=== PATIENT | female | born 1955 | race Caucasian/White ===

== ENCOUNTER → 2019-11-24 16:59 | Outpatient (CLI) | payer MEDICARE, SELFPAY ==
--- NOTE | 2019-11-24 17:28 | DI.MG.S_ITS ---
Patient Name: ADRIANA PRADO date: 1955 Sex: F Attending Physician: Pio Indications: Date: 11/24/2019 17:25 At the request of: EUSEBIO SCOTT Procedure: MM screening mammo BI BILATERAL DIGITAL SCREENING MAMMOGRAM 3D/2D WITH CAD: 11/24/2019 CLINICAL: Routine screening. Baseline exam. No prior exams were available for comparison. The tissue of both breasts is heterogeneously dense. This may lower the sensitivity of mammography. Current study was also evaluated with a Computer Aided Detection (CAD) system. No significant masses, calcifications, or other findings are seen in either breast. IMPRESSION: NEGATIVE There is no mammographic evidence of malignancy. A 1 year screening mammogram is recommended. This exam was interpreted at Station ID: [id number]. NOTE: For mammograms, a report in lay terms will be sent to the patient. Approximately 15% of breast malignancies will not be visualized mammographically. In the management of a palpable breast mass, a negative mammogram must not discourage biopsy of a clinically suspicious lesion. Electronically Signed By: Tremayne [email or web address]:11/24/2019 18:15:39 letter sent: Normal Exam ACR BI-RADS Category 1: Negative 3341F
== END ==
PROVIDERS: PCP Student in an Organized Health Care Education/Training Program; Referring Provider Student in an Organized Health Care Education/Training Program; Visit Provider Student in an Organized Health Care Education/Training Program
DX: Z12.31 Encounter for screening mammogram for malignant neoplasm of breast (principal)
CPT/HCPCS: 77063; 77067

== ENCOUNTER → 2019-11-28 12:42 | Outpatient (CLI) | payer MEDICARE, SELFPAY ==
[2019-11-29 18:08] LABS: COVID19 Sendout Not Detected (Not Detect)
== END ==
PROVIDERS: PCP Student in an Organized Health Care Education/Training Program; Visit Provider Nurse Practitioner
DX: Z11.59 Encounter for screening for other viral diseases (principal)
CPT/HCPCS: 87635

== ENCOUNTER → 2019-12-01 14:30 | Outpatient (CLI) | payer MEDICARE, SELFPAY ==
--- NOTE | 2019-12-06 16:37 | PM.PFT.1 ---
Pulmonary Function Test Referral & Results Date Patient Seen: 12/01/19 Requesting provider: Nita Suero Indication: Asthma Results: The spirometry demonstrates an FVC of 3.43 L which is 101% of predicted. The FEV1 was measured at 2.0 L which is 77% of predicted. The FEV1/FVC ratio was 58 which is 76% of predicted. Following the administration of bronchodilator there was a 17% improvement in FEV1 and a 62% improvement in FEF 25-75%. Lung volumes show an SVC of 3.31 L which is 105% of predicted. The diffusing capacity was measured at 25.73 which is 95% of predicted. The maximum voluntary ventilation was reduced Interpretation: This study demonstrates mild obstructive lung disease based on reduction FEV1. There is also a notable improvement following bronchodilator based on improvement in FEV1 and more significantly small airway flow based on improvement in FEF 25-75% Lung volumes are normal Diffusing capacity is normal This is consistent with a diagnosis of mild asthma
== END ==
PROVIDERS: PCP Student in an Organized Health Care Education/Training Program; Referring Provider Student in an Organized Health Care Education/Training Program; Visit Provider Student in an Organized Health Care Education/Training Program
DX: J45.20 Mild intermittent asthma, uncomplicated (principal)
CPT/HCPCS: 94060; 94726; 94729